=== PATIENT | female | born 1955 | race African-American/Black ===

== ENCOUNTER 2017-02-12 13:24 | Emergency (ER) | payer MEDICARE, OTHER ==
[~2017-02-12 13:24] MED LIST: ALPR0.5T6; AMIT50TA; AMLO10TA2; BUDE10.2; BUSP10TA; CYCL10TA2; FENT1PAT17; GABA300C8; INSU100I11 SQ; INSU100V12; IPRA4AER; LISI-334 PO; LISI1TAB7; MELO15TA23; METF500T4 PO; OMEP40CA5; OXYC1TAB7 PO; OXYC20TA; POTASSIUM CHLO10 MEQ; PREG50CA; RANI150T2; TIZA4CAP; TIZA4TAB; TRAZ100T12; VENL150C6 PO
[2017-02-12 13:53] VITALS: BP 176/80
--- NOTE | 2017-02-12 14:13 | PHYS DOC ---
Past Medical History Past Medical History: COPD, Depression, Diabetes-Type II, Hypertension, Other Additional Past Medical Histor: CHRONIC BACK PAIN, HEP C Past Surgical History: Hysterectomy Alcohol Use: None Drug Use: None Adult General Chief Complaint Chief Complaint: MECHANICAL FALL HPI HPI Patient is a 61 year old presents to the emergency department with complaints of right knee pain. Patient states that she tripped and fell landing on the right knee. She's had pain and swelling since incident which occurred "four days prior to arrival. Review of Systems Review of Systems Constitutional: Denies fever or chills [] Eyes: Denies change in visual acuity, redness, or eye pain [] HENT: Denies nasal congestion or sore throat [] Respiratory: Denies cough or shortness of breath [] Cardiovascular: No additional information not addressed in HPI [] GI: Denies abdominal pain, nausea, vomiting, bloody stools or diarrhea [] : Denies dysuria or hematuria [] Musculoskeletal: Right knee pain Integument: Denies rash or skin lesions [] Neurologic: Denies headache, focal weakness or sensory changes [] Endocrine: Denies polyuria or polydipsia [] Current Medications Current Medications Current Medications Medications (Trade) Dose Ordered Sig/Brennen Start Time Stop Time Status Last Admin Dose Admin Tramadol HCl (Ultram) 50 mg 1X ONCE 02/12/17 14:15 02/12/17 14:16 DC Allergies Allergies Allergies Coded Allergies Type Severity Reaction Last Updated Verified codeine Allergy Severe hives 11/07/13 Yes acetaminophen Adverse Reaction Unknown 05/10/14 Yes morphine Adverse Reaction Unknown 08/14/16 No Physical Exam Physical Exam Constitutional: Well developed, well nourished, no acute distress, non-toxic appearance. [] Neck: Normal range of motion, no tenderness, supple, no stridor. [] Cardiovascular:Heart rate regular rhythm, no murmur [] Lungs & Thorax: Bilateral breath sounds clear to auscultation [] Abdomen: Bowel sounds normal, soft, no tenderness, no masses, no pulsatile masses. [] Skin: Warm, dry, Back: No tenderness, no CVA tenderness. [] Extremities: Right lower extremity exam right hip and right ankle unremarkable. Right knee with mild swelling. Has abrasions across the region patella. No laxity on anterior drawer, negative valgus varus stress. Patient is fully weight -bearing but has diffuse pain with ROM. Neurovascular intact distally. Neurologic: Alert and oriented X 3, normal motor function, normal sensory function, no focal deficits noted. [] Psychologic: Affect normal, judgement normal, mood normal. [] Current Patient Data Vital Signs Vital Signs Date Time Temp Pulse Resp B/P (MAP) Pulse Ox O2 Delivery O2 Flow Rate FiO2 02/12/17 13:53 98.8 106 20 98 Room Air 98.8 EKG EKG [] Radiology/Procedures Radiology/Procedures [][facility] [address] [place] [address] IMAGING REPORT Signed PATIENT: BARBIE SHOEMAKER ACCOUNT: [id number] : 1955 LOCATION: ER AGE: 61 SEX: F EXAM STATUS: REG ER ORD. PHYSICIAN: NELLY ROMAN APRN REASON: FALL PROCEDURE: KNEE RIGHT 3V Indication fall 2 days ago. Persistent pain. AP and lateral views of the right knee were obtained. No acute or significant bony finding is seen DICTATED and SIGNED BY: CALIXTO DSOUZA MD DATE: 02/12/17 1413 CC: ARTHUR MOREIRA MD; NON,STAFF; NELLY ROMAN APRN ~ Course & Med Decision Making Course & Med Decision Making Patient reports that she is a pain management patient came at [facility] and is under contract, refuses pain medications in the emergency department and prescriptions for home. Pertinent Labs and Imaging studies reviewed. (See chart for details) [] Dragon Disclaimer Dragon Disclaimer This electronic medical record was generated, in whole or in part, using a voice recognition dictation system. Departure Departure Impression: Primary Impression: Contusion, knee Disposition: 01 HOME, SELF-CARE Condition: STABLE Referrals: ARTHUR MOREIRA MD (PCP) Patient Instructions: Contusion Additional Instructions: Ice to affected area 4 times a day for 15 minute intervals. After 3 days, use moist heat alternating with ice. Continue your pain medications as prescribed by [facility] pain management group. Return to the emergency room for new symptoms or concerns or worsening of current symptoms. Please follow-up with your primary care provider within 7 days. NELLY ROMAN APRN Feb 12, 2017 14:13
[2017-02-12] MEDS ORDERED: traMADol 50 MG TABLET PO ONE (14:15)
--- NOTE | 2017-02-12 14:18 | RAD ---
Indication fall 2 days ago. Persistent pain. AP and lateral views of the right knee were obtained. No acute or significant bony finding is seen
== END 2017-02-12 14:22 | disposition home or self-care (01) ==
LOC: ER 13:24
DX: S80.01XA Contusion of right knee, initial encounter (principal); J44.9 Chronic obstructive pulmonary disease, unspecified; F32.9 Major depressive disorder, single episode, unspecified; E11.9 Type 2 diabetes mellitus without complications; I10 Essential (primary) hypertension; G89.29 Other chronic pain; Z90.710 Acquired absence of both cervix and uterus; Z86.19 Personal history of other infectious and parasitic diseases; Z88.5 Allergy status to narcotic agent; Z88.6 Allergy status to analgesic agent; W01.0XXA Fall on same level from slipping, tripping and stumbling without subsequent striking against object, initial encounter; Y93.89 Activity, other specified; Y92.89 Other specified places as the place of occurrence of the external cause; Y99.8 Other external cause status
CPT/HCPCS: 73562; 99284